=== PATIENT | female | born 1995 | race Caucasian/White ===

== ENCOUNTER 2020-08-20 08:06 | Emergency (ER) | payer OTHER ==
[2020-08-20 08:24] VITALS: BP 128/80; PULSE 76; O2SAT 96
--- NOTE | 2020-08-20 08:37 | ERPHSYRPT ---
- History of Present Illness Time Seen by Provider: 08/20/20 08:26 Source: patient Exam Limitations: no limitations Patient Subjective Stated Complaint: Pt states that for the past 3-4 weeks she wakes up and has shooting pain in her left arm that goes just above her elbow and also has numbness and tingling in the left hand Triage Nursing Assessment: Pt brought into the hospital by her boyfriend, lila danielson, rates pain as 8/10, reports that it sometimes gets worse after she has weed eated, denies any history of injury, pulses normal, doesn't appear to be in any distress Physician History: 24 years old morbidly obese female presented in the ER with almost 4 weeks history of off and on left wrist/hand/forearm pain which is more with repetitive movements and waking her up from sleep and improves with jerking left upper extremity. Also report intermittent tingling and numbness in the first 3 digits. Denies any fall or trauma. Occurred: days ago (30) Quality: burning, sharpness Severity of Pain-Max: moderate Severity of Pain-Current: mild Extremities Pain Location: elbow: left, wrist: left, hand: left Allergies/Adverse Reactions: No Known Drug Allergies Allergy (Verified 08/20/20 08:24) Home Medications: Escitalopram Oxalate 10 mg [Lexapro 10 MG] 10 mg PO DAILY 08/20/20 [History] Travel Risk - International Travel Have you traveled outside of the country in past 3 weeks: No - Coronavirus Screening Are you exhibiting any of the following symptoms?: No Close contact with a COVID-19 positive Pt in past 14-21 Days: No - Vaccine Status Have you recieved a Covid-19 vaccination: No - Review of Systems Constitutional: No Symptoms Eyes: No Symptoms Ears, Nose, & Throat: No Symptoms Respiratory: No Symptoms Cardiac: No Symptoms Abdominal/Gastrointestinal: No Symptoms Genitourinary Symptoms: No Symptoms Musculoskeletal: Joint Pain Neurological: Sensory Changes Psychological: No Symptoms Endocrine: No Symptoms Hematologic/Lymphatic: No Symptoms - Past Medical History Pertinent Past Medical History: Yes Psycho-Social History: Anxiety, Depression - Past Surgical History Past Surgical History: Yes - Social History Smoking Status: Current every day smoker Exposure to second hand smoke: Yes Patient Lives Alone: No - Female History Hx Last Menstrual Period: 08/19/2020 Hx Now: No - Nursing Vital Signs Nursing Vital Signs: Initial Vital Signs Temperature 98.0 F 08/20/20 08:14 Pulse Rate 76 08/20/20 08:14 Blood Pressure 128/80 08/20/20 08:14 O2 Sat by Pulse Oximetry 96 08/20/20 08:14 Pain Scale Pain Intensity 8 - Physical Exam General Appearance: no apparent distress, alert Eyes, Ears, Nose, Throat Exam: normal ENT inspection Neck Exam: normal inspection, supple, full range of motion Cardiovascular/Respiratory Exam: normal breath sounds, regular rate/rhythm Abdominal Exam: non-tender, soft Wrist Exam: normal inspection, non-tender, no evidence of injury, normal ROM, No limited ROM, No soft tissue tenderness, No swelling Hand Exam: normal inspection, non-tender, no evidence of injury, normal ROM (Positive Tinel and Phalen test) Neuro/Tendon Exam: normal sensation, normal motor functions, normal tendon funct ions Mental Status Exam: alert, oriented x 3 Skin Exam: normal color SpO2 Interpretation: normal SpO2: 96 O2 Delivery: Room Air - Progress Progress: unchanged Progress Note: 08/20/20 08:35 We will go for symptomatic treatment. Recommended outpatient follow-up and may need EMG studies. Recommended splint. Counseled pt/family regarding: diagnosis, need for follow-up - Departure Departure Disposition: Home Clinical Impression: Carpal tunnel syndrome of left wrist Condition: Stable Critical Care Time: No Referrals: SHAKIRA MCDANIELS MD [ACTIVE STAFF] - Follow Up with PCP/3 days Instructions: Carpal Tunnel Syndrome (DC) Additional Instructions: Take pain medicine as needed. Use perflex splint. Follow-up with primary care physician for reevaluation and may need to go for nerve conduction studies for further evaluation of carpal tunnel. Return to ER for worsening pain or difficulty movements of wrist/fingers. Prescriptions: Prednisone 20 mg [Deltasone 20 mg] 60 mg PO DAILY 5 Days #15 tablet Diclofenac Sodium 75 mg PO BID PRN 10 Days #20 tablet.dr NADREWS Reason: Pain
== END 2020-08-20 08:39 | disposition home or self-care (01) ==
LOC: ED 08:06
DX: G56.02 Carpal tunnel syndrome, left upper limb (principal)
CPT/HCPCS: 99283; L3908

== ENCOUNTER 2020-10-06 16:47 | Emergency (ER) | payer OTHER ==
[2020-10-06 16:57] VITALS: BP 128/72; PULSE 105; O2SAT 98
--- NOTE | 2020-10-06 17:14 | ERPHSYRPT ---
- History of Present Illness Time Seen by Provider: 10/06/20 17:05 Source: patient Exam Limitations: no limitations Patient Subjective Stated Complaint: pt here for swelling to gums right lower for a couple days Triage Nursing Assessment: pt alert, resp easy, face mask in place, has swelling to lower right gums Physician History: Patient is a 24-year-old white female presents with a complaint of mouth pain. This is been going on for several days her dentist is on vacation for another week or so. She has a history of previous oral infections and dental abscesses. He reports she responds well to amoxicillin. Timing/Duration: gradual onset Severity: severe ENT Location: mouth Prearrival Treatment: no prearrival treatment Modifying Factors: Improves With: nothing Associated Symptoms: facial pain/swelling, jaw pain Allergies/Adverse Reactions: No Known Drug Allergies Allergy (Verified 10/06/20 17:00) Home Medications: Escitalopram Oxalate 10 mg [Lexapro 10 MG] 10 mg PO DAILY 08/20/20 [History] Hx Influenza Vaccination/Date Given: No Hx Pneumococcal Vaccination/Date Given: No Immunizations Up to Date: Yes Travel Risk - International Travel Have you traveled outside of the country in past 3 weeks: No - Coronavirus Screening Are you exhibiting any of the following symptoms?: No Close contact with a COVID-19 positive Pt in past 14-21 Days: No - Vaccine Status Have you recieved a Covid-19 vaccination: No - Review of Systems Constitutional: No Fever, No Chills Eyes: No Symptoms Ears, Nose, & Throat: No Symptoms, Mouth Pain Respiratory: No Cough, No Dyspnea Cardiac: No Chest Pain, No Edema, No Syncope Abdominal/Gastrointestinal: No Abdominal Pain, No Nausea, No Vomiting, No Diarrhea Genitourinary Symptoms: No Dysuria Musculoskeletal: No Back Pain, No Neck Pain Skin: No Rash Neurological: No Dizziness, No Focal Weakness, No Sensory Changes Psychological: No Symptoms Endocrine: No Symptoms All Other Systems: Reviewed and Negative - Past Medical History Pertinent Past Medical History: Yes Neurological History: No Pertinent History Cardiac History: No Pertinent History Respiratory History: No Pertinent History Endocrine Medical History: No Pertinent History Musculoskeletal History: No Pertinent History Psycho-Social History: Anxiety, Depression - Past Surgical History Past Surgical History: Yes - Social History Smoking Status: Current every day smoker Exposure to second hand smoke: Yes Drug Use: none Patient Lives Alone: No - Female History Hx Last Menstrual Period: 2 weeks ago Hx Now: No - Nursing Vital Signs Nursing Vital Signs: Initial Vital Signs Temperature 97.2 F 10/06/20 16:55 Pulse Rate 105 H 10/06/20 16:55 Respiratory Rate 18 10/06/20 16:55 Blood Pressure 128/72 10/06/20 16:55 O2 Sat by Pulse Oximetry 98 10/06/20 16:55 Pain Scale Pain Intensity 10 - Physical Exam General Appearance: mild distress Eye Exam: bilateral eye: PERRL, EOMI Ear Exam: bilateral ear: auricle normal, canal normal, TM normal Nasal Exam: normal inspection Throat Exam: pharynx normal, dental tenderness, mandibular swelling (Examination of the mass shows soft tissue swelling posterior and lateral to the distal molar on the right mandibular side), moist mucus membranes, No tonsillar exudate Neck Exam: supple Cardiovascular/Respiratory Exam: normal breath sounds, regular rate/rhythm Abdominal Exam: non-tender, soft Neurologic Exam: alert, oriented x 3, sensation nml, No motor deficits Skin Exam: normal color, warm, dry SpO2 Interpretation: normal SpO2: 98 O2 Delivery: Room Air - Course Nursing assessment & vital signs reviewed: Yes - Progress Progress: unchanged - Departure Departure Disposition: Home Clinical Impression: Oral abscess Condition: Stable Critical Care Time: No Referrals: SARAH MEDINA [Primary Care Provider] - Instructions: Dental Pain (DC) Prescriptions: Amox Tr/Potass Clav. 500 mg [Augmentin 500-125 Tablet] 500 mg PO BID 10 Days #20 tablet
== END 2020-10-06 17:22 | disposition home or self-care (01) ==
LOC: ED 16:47
DX: K12.2 Cellulitis and abscess of mouth (principal); K13.79 Other lesions of oral mucosa
CPT/HCPCS: 99282